=== PATIENT | male | born 1935 | race Caucasian/White ===

== ENCOUNTER 2017-05-08 17:04 | Emergency (ER) | payer OTHER, MEDICARE ==
[2017-05-08 17:46] LABS: HEMOGLOBIN 12.1 gm/dl (14.0-17.5); RED BLOOD COUNT 3.84 M/UL (4.20-5.50); WHITE BLOOD COUNT 5.6 K/UL (4.5-11.0)
[2017-05-08 18:03] LABS: BUN/CREATININE RATIO 11 (0-10)
== END 2017-05-08 21:35 | disposition home or self-care (01) ==
LOC: ER1 17:04
PROVIDERS: Physician Assistant
DX: M79.81 Nontraumatic hematoma of soft tissue (principal); I73.9 Peripheral vascular disease, unspecified; I10 Essential (primary) hypertension; E87.1 Hypo-osmolality and hyponatremia; I48.91 Unspecified atrial fibrillation
CPT/HCPCS: 36415; 73630; 80048; 85025; 85610; 85730; 93005; 93926; 93971; 96360; 99284